=== PATIENT | female | born 1995 | race African-American/Black ===

== ENCOUNTER 2018-11-20 22:16 | Emergency (ER) | payer MEDICAID ==
[~2018-11-20] VITALS: Ht 162.6 cm; Wt 118.8 kg
[2018-11-20 22:44] VITALS: Ht 162.6 cm; Wt 118.8 kg
[2018-11-21 02:28] VITALS: BP 130/93
== END 2018-11-21 02:28 | disposition home or self-care (01) ==
LOC: ED 22:16
DX: R10.13 Epigastric pain (principal)
CPT/HCPCS: Q0162